=== PATIENT | female | born 1950 | race Two or more races ===

== ENCOUNTER → 2017-02-13 | Day surgery (SDC) | payer OTHER ==
[~2017-02-13] MED LIST: LIDOCAINE/PRILOCAINE 1 EACH CRTUBE TP ONE; MIDAZOLAM 2 MG/2 ML VIAL IVP ONE; NS 500 ML IV ONE; PROPOFOL 200 MG/20 ML VIAL IVP ONE; fentaNYL 100 MCG/2 ML INJ IVP ONE
--- NOTE | 2017-02-13 14:03 | CPEKG ---
Heart Rate: 75 RR Interval: 800 QRSD Interval: 84 QT Interval: 372 QTC Interval: 416 QRS [place]: 7 T Wave [place]: 19 EKG Severity - ABNORMAL ECG - EKG Impression: ATRIAL FIBRILLATION, V-RATE 64-86 Electronically Signed By: Gigi Anderson 13-Feb-2017 14:24:14
[2017-02-13 14:36] LABS: INR 1.24 (0.83-1.16); PROTIME(PATIENT) 15.6 SEC (12.0-15.0)
[2017-02-13 14:37] LABS: APTT 29.9 SEC (23.0-38.0)
[2017-02-13 14:38] LABS: ANION GAP 11 mEq/L (8-16); CALCIUM 10.1 mg/dL (8.5-10.4); CARBON DIOXIDE 27 mEq/l (22-31); CHLORIDE 102 mEq/L (97-110); CREATININE 1.3 mg/dL (0.6-1.0); GLOMERULAR FILTRATION RATE 41; GLUCOSE 96 mg/dL (70-100); MAGNESIUM 2.3 mg/dL (1.6-2.3); POTASSIUM 4.4 mEq/L (3.5-5.2); SODIUM 140 mEq/L (134-144)
--- NOTE | 2017-02-13 17:54 | PDTEE1 ---
WILLIAM Cardioversion Procedure Procedure: Electrical Cardioversion Indications: Atrial Fibrillation Consent: Signed and in Chart Anticoagulation: Eliquis Procedural Details: Pads were placed in anterior-posterior position. WILLIAM probe was advanced and standard images obtained. There is no evidence of left atrial or left atrial appendage thrombus. Synchronized cardioversion attempt #1: 200J Synchronized cardioversion attempt #2: 300J Results: Other (Following 2nd shock, sinus rhythm was restored for only a few beats before reverting to atrial fibrillation.) Conclusions: other (Unsuccessful atttempt at cardioversion. Will start flecainide 50 mg BID and plan for repeat cardioversion at a later date.)
== END | disposition home or self-care (01) ==
LOC: FCATH 13:37
PROVIDERS: ATTEND Internal Medicine Interventional Cardiology
PROC: 5A2204Z Restoration of Cardiac Rhythm, Single (ICD-10-PCS; principal; 2017-02-13)
DX: I25.10 Atherosclerotic heart disease of native coronary artery without angina pectoris (principal); E78.00 Pure hypercholesterolemia, unspecified; I48.1 Persistent atrial fibrillation; R42 Dizziness and giddiness; E78.5 Hyperlipidemia, unspecified; E03.9 Hypothyroidism, unspecified; G35 Multiple sclerosis; Z87.891 Personal history of nicotine dependence
CPT/HCPCS: J2704

== ENCOUNTER → 2017-03-01 | Outpatient (CLI) | payer OTHER | LOC: BHLMT 09:00 | PROVIDERS: ATTEND Internal Medicine Cardiovascular Disease | DX: I25.10 Atherosclerotic heart disease of native coronary artery without angina pectoris (principal); E78.00 Pure hypercholesterolemia, unspecified; E03.9 Hypothyroidism, unspecified; I48.1 Persistent atrial fibrillation; I48.92 Unspecified atrial flutter | CPT/HCPCS: 93005-PO ==

== ENCOUNTER 2017-03-09 09:50 | Day surgery (SDC) | payer OTHER ==
[2017-03-09] MEDS ORDERED: fentaNYL 100 MCG/2 ML INJ IVP ONE (09:52)
[2017-03-09] MEDS ORDERED: NS 500 ML IV ONE (09:52)
[2017-03-09] MEDS ORDERED: PROPOFOL 200 MG/20 ML VIAL IVP ONE (09:52)
[2017-03-09] MEDS ORDERED: MIDAZOLAM 2 MG/2 ML VIAL IVP ONE (09:52)
--- NOTE | 2017-03-09 10:22 | CPEKG ---
Heart Rate: 94 RR Interval: 638 QRSD Interval: 100 QT Interval: 368 QTC Interval: 461 QRS [place]: -67 T Wave [place]: -54 EKG Severity - ABNORMAL ECG - EKG Impression: ATRIAL FIBRILLATION/FLUTTER EKG Impression: PROBABLE INFERIOR INFARCT, POSSIBLY RECENT EKG Impression: BORDERLINE R WAVE PROGRESSION, ANTERIOR LEADS EKG Impression: LATERAL LEADS ARE ALSO INVOLVED Electronically Signed By: Qasim Kerr 09-Mar-2017 11:51:02
[2017-03-09 10:46] LABS: INR 1.36 (0.83-1.16); PROTIME(PATIENT) 16.8 SEC (12.0-15.0)
[2017-03-09 10:47] LABS: APTT 30.5 SEC (23.0-38.0)
[2017-03-09 10:58] LABS: ANION GAP 12 mEq/L (8-16); CALCIUM 10.5 mg/dL (8.5-10.4); CARBON DIOXIDE 23 mEq/l (22-31); CHLORIDE 100 mEq/L (97-110); CREATININE 1.4 mg/dL (0.6-1.0); GLOMERULAR FILTRATION RATE 38; GLUCOSE 87 mg/dL (70-100); MAGNESIUM 2.4 mg/dL (1.6-2.3); POTASSIUM 4.3 mEq/L (3.5-5.2); SODIUM 135 mEq/L (134-144)
[2017-03-09] MEDS ORDERED: NALOXONE HCL 0.4 MG/ML INJ IVP PRN (11:08)
--- NOTE | 2017-03-09 11:10 | POSTANESTH ---
Post Anesthetic Evaluation Cardiovascular Status: Normal, Stable Respiratory Status: Normal, Stable Level of Consciousness/Mental Status: Can Participate in Eval, Moderately Sleepy Pain Control: Adequate, Prn Tx Ordered Nausea/Vomiting Control: Adequate, Prn Tx Ordered Complications Possibly Related to Anesthesia: None Noted
--- NOTE | 2017-03-09 11:10 | PDANEPAE ---
ANE Past Medical History - Cardiovascular History Hx Hypertension: Yes Hx Arrhythmias: Yes Hx Coronary Artery / Peripheral Vascular Disease: Yes Hx Palpitations: Yes - Pulmonary History Hx Sleep Apnea: No - Endocrine History Hypothyroid: Yes ANE Patient History - Allergies Allergies/Adverse Reactions: acetaminophen [From Vicodin] Allergy (Verified 02/13/17 13:46) aspirin Allergy (Verified 02/13/17 13:46) hydrocodone [From Vicodin] Allergy (Verified 02/13/17 13:46) - Home Medications Home Medications: Acetaminophen Extra Strength 1,000 mg PO Q6 PRN 03/09/17 [Last Taken Unknown] Calcium 1,500 mg PO DAILY 03/09/17 [Last Taken Unknown] Eliquis 5 mg PO BID 03/09/17 [Last Taken Unknown] Flecainide Acetate 50 mg PO Q12 03/09/17 [Last Taken Unknown] Gabapentin 100 mg PO DAILY 03/09/17 [Last Taken Unknown] Ibuprofen 200 mg PO Q6 PRN 03/09/17 [Last Taken Unknown] Levothyroxine 112 mg PO DAILY 03/09/17 [Last Taken Unknown] Metoprolol Succinate 12.5 mg PO DAILY 03/09/17 [Last Taken Unknown] Simvastatin 40 mg PO DAILY 03/09/17 [Last Taken Unknown] Tecfidera 240 mg PO BID 03/09/17 [Last Taken Unknown] Vitamin D3 2000 units tab (OTC) 2,000 units PO DAILY 03/09/17 [Last Taken Unknown] - Smoking Hx Smoking Status: Former smoker ANE Labs/Vital Signs - Labs Result Diagrams: 03/09/17 10:30 - Vital Signs Height: 168.8 cm Weight: 69.8 kg ANE Physical Exam - Airway Neck exam: decreased ROM Mallampati Score: Class 1 Mouth exam: normal dental/mouth exam - Pulmonary Pulmonary: no respiratory distress, no rales or rhonchi, clear to auscultation - Cardiovascular Cardiovascular: regular rate and rhythym, irregularly irregular - ASA Status ASA Status: III ANE Anesthesia Plan Anesthesia Plan: GA with mask
--- NOTE | 2017-03-09 11:39 | PDTEE1 ---
WILLIAM Cardioversion Procedure Procedure: Electrical Cardioversion Indications: Other (Atrial Flutter) Consent: Signed and in Chart Anticoagulation: Eliquis Procedural Details: Pads were placed in anterior-posterior position. No WILLIAM performed since the patient has been on consistent anticoagulation. Synchronized cardioversion attempt #1: 200J Results: Normal sinus rhythm Conclusions: Successful Cardioversion
[2017-03-09] MEDS ORDERED: ACETAMINOPHEN 500 MG TAB PO ONE (11:45)
--- NOTE | 2017-03-09 15:55 | CPEKG ---
Heart Rate: 66 RR Interval: 909 P-R Interval: 236 QRSD Interval: 90 QT Interval: 392 QTC Interval: 411 P [place]: 58 QRS [place]: -32 T Wave [place]: 19 EKG Severity - ABNORMAL ECG - EKG Impression: SINUS RHYTHM EKG Impression: FIRST DEGREE AV BLOCK EKG Impression: LEFT AXIS DEVIATION EKG Impression: SINUS RHYTHM HAS REPLACED ATRIAL FIB/FLUTTER Electronically Signed By: Qasim Kerr 09-Mar-2017 16:57:39
== END 2017-03-09 12:17 | disposition home or self-care (01) ==
LOC: FCATH 09:50
PROVIDERS: ATTEND Internal Medicine Interventional Cardiology
PROC: 5A2204Z Restoration of Cardiac Rhythm, Single (ICD-10-PCS; principal; 2017-03-09)
DX: I48.2 Chronic atrial fibrillation (principal); I25.10 Atherosclerotic heart disease of native coronary artery without angina pectoris; E78.00 Pure hypercholesterolemia, unspecified; E03.9 Hypothyroidism, unspecified; G35 Multiple sclerosis; N18.9 Chronic kidney disease, unspecified; Z79.01 Long term (current) use of anticoagulants
CPT/HCPCS: J2704

== ENCOUNTER → 2017-03-16 | Outpatient (CLI) | payer OTHER | LOC: BHLMT 10:30 | PROVIDERS: ATTEND Internal Medicine Cardiovascular Disease | DX: I48.92 Unspecified atrial flutter (principal); I25.10 Atherosclerotic heart disease of native coronary artery without angina pectoris; I48.0 Paroxysmal atrial fibrillation; E78.00 Pure hypercholesterolemia, unspecified; R00.1 Bradycardia, unspecified | CPT/HCPCS: 93005-PO ==

== ENCOUNTER → 2017-04-06 | Outpatient (CLI) | payer OTHER | LOC: BHFA 15:00 | PROVIDERS: ATTEND Internal Medicine Cardiovascular Disease | DX: I48.92 Unspecified atrial flutter (principal) ==

== ENCOUNTER 2017-04-26 07:22 | Observation (INO) | payer OTHER ==
[2017-04-26] MEDS ORDERED: ISOPROTERENOL HCL/D5W 0.2 MG/50 ML BAG IV ONE (07:29)
[2017-04-26] MEDS ORDERED: HEPARIN 10,000 UNIT/10 ML MDV ONE (07:29)
[2017-04-26] MEDS ORDERED: BUPIVACAINE 0.5% 30 ML SDV ONE (07:29)
[2017-04-26] MEDS ORDERED: LIDOCAINE 1% 300 MG/30 ML SDV ONE (07:29)
[2017-04-26] MEDS ORDERED: NS 1,000 ML IV ONE (07:33)
[2017-04-26] MEDS ORDERED: MIDAZOLAM 2 MG/2 ML VIAL IVP ONE (07:33)
--- NOTE | 2017-04-26 07:46 | CPEKG ---
Heart Rate: 51 RR Interval: 1176 P-R Interval: 228 QRSD Interval: 96 QT Interval: 444 QTC Interval: 409 P [place]: 37 QRS [place]: -41 T Wave [place]: 31 EKG Severity - ABNORMAL ECG - EKG Impression: SINUS RHYTHM EKG Impression: FIRST DEGREE AV BLOCK EKG Impression: LEFT AXIS DEVIATION Electronically Signed By: Neal Whittington 26-Apr-2017 14:18:26
[2017-04-26 08:18] LABS: % IMMATURE GRANULYOCYTES 0.2 % (0.0-1.1); ABSOLUTE IMMATURE GRANULOCYTES 0.01 10^3/uL (0.00-0.10); ADD DIFF? NO; ADD MORPH? NO; ADD SCAN? NO; ATYPICAL LYMPHOCYTE FLAG 10 (0-99); FRAGMENT RBC FLAG 0 (0-99); HEMATOCRIT 36.3 % (38.0-47.0); HEMOGLOBIN 12.3 g/dL (12.6-16.3); LEFT SHIFT FLG 0 (0-99); LIPEMIA HEMOLYSIS FLAG 90 (0-99); MEAN CELL HEMOGLOBIN CONCENTR. 33.9 g/dL (32.4-36.7); MEAN CELL VOLUME 94.5 fL (81.5-99.8); MEAN PLATELET VOLUME 10.1 fL (8.7-11.7); PLATELET CLUMPS FLAG 0 (0-99); PLATELET COUNT 277 10^3/uL (150-400); RED BLOOD CELL COUNT 3.84 10^6/uL (4.18-5.33); RED CELL DISTRIBUTION WIDTH 12.5 % (11.5-15.2)
[2017-04-26 08:37] LABS: ANION GAP 14 mEq/L (8-16); CALCIUM 10.1 mg/dL (8.5-10.4); CARBON DIOXIDE 22 mEq/l (22-31); CHLORIDE 101 mEq/L (97-110); CREATININE 1.3 mg/dL (0.6-1.0); GLOMERULAR FILTRATION RATE 41; GLUCOSE 79 mg/dL (70-100); MAGNESIUM 2.3 mg/dL (1.6-2.3); POTASSIUM 4.2 mEq/L (3.5-5.2); SODIUM 137 mEq/L (134-144)
[2017-04-26 08:39] LABS: INR 1.05 (0.83-1.16); PROTIME(PATIENT) 13.6 SEC (12.0-15.0)
[2017-04-26 08:40] LABS: APTT 27.3 SEC (23.0-38.0)
--- NOTE | 2017-04-26 08:40 | PDANEPAE ---
ANE History of Present Illness 67 year old female with A flutter and A fibrillation. ANE Past Medical History Past Medical History: No fever/URI x2 weeks. Had a bump on her head after recent cardioversion. No clear understanding of how this happened. Concerned that this not happen again during anesthetic. - Cardiovascular History Hx Hypertension: Yes Hx Arrhythmias: Yes Hx Coronary Artery / Peripheral Vascular Disease: Yes Hx Palpitations: Yes Cardiovascular History Comment: Hypercholesterolemia - Pulmonary History Hx COPD: No Hx Asthma/Reactive Airway Disease: No Hx Recent Upper Respiratory Infection: No Hx Sleep Apnea: No - Neurologic History Hx Cerebrovascular Accident: No Hx Seizures: No Hx Dementia: No - Endocrine History Hypothyroid: Yes - Renal History Hx Renal Disorders: No - Liver History Hx Hepatic Disorders: No - Neurological & Psychiatric Hx Hx Neurological and Psychiatric Disorders: No - GI History Hx Gastrointestinal Disorders: No ANE Review of Systems - Exercise capacity METS (RN): 4 METS - Systems Constitutional: Reports: no symptoms Respiratory: Reports: no symptoms ANE Patient History - Allergies Allergies/Adverse Reactions: aspirin Allergy (Verified 02/13/17 13:46) hydrocodone [From Vicodin] Allergy (Verified 02/13/17 13:46) - Home Medications Home medications: home medication list seen and reviewed Home Medications: Acetaminophen [Tylenol ES 500 mg (*)] 1,000 mg PO DAILY PRN 03/09/17 [Last Taken 03/09/17 11:30] Apixaban [Eliquis] 5 mg PO BID 03/09/17 [Last Taken 04/23/17 21:00] Cholecalciferol Vit D3 [Vitamin D3 2000 units tab (OTC)] 2,000 units PO DAILY [Last Taken 03/09/17 07:00] Dimethyl Fumarate [Tecfidera] 240 mg PO BID 03/09/17 [Last Taken 04/25/17] Flecainide Acetate 50 mg PO Q12 03/09/17 [Last Taken 03/09/17 07:00] Gabapentin [Neurontin 100 MG (*)] 100 mg PO HS 03/09/17 [Last Taken 04/25/17] Herbals/Supplements -Info Only 1 ea PO DAILY 03/09/17 [Last Taken 03/09/17 07:00 ] Levothyroxine [Synthroid 112 mcg (*)] 112 mcg PO DAILY06 03/09/17 [Last Taken ] Simvastatin [Zocor] 40 mg PO DAILY 03/09/17 [Last Taken 04/25/17] Ibuprofen [Motrin (*)] 200 mg PO DAILY PRN 04/26/17 [Last Taken Unknown] - Anes Hx Anes Hx: slow to awaken from anesthesia Hx Anesthesia Complications (with details): After most recent CV, pt was told she awoke slowly. - Smoking Hx Smoking Status: Former smoker Marijuana use: No - Family Anes Hx Family Anes Hx: neg - N/A ANE Labs/Vital Signs - Labs Result Diagrams: 04/26/17 07:50 04/26/17 07:50 - Vital Signs Vital Signs: reviewed preoperatively; see RN documention for details ANE Physical Exam - Airway Neck exam: FROM Mallampati Score: Class 2 Mouth exam: normal dental/mouth exam - Pulmonary Pulmonary: clear to auscultation - Cardiovascular Cardiovascular: regular rate and rhythym - ASA Status ASA Status: II ANE Anesthesia Plan Anesthesia Plan: general endotracheal anesthesia
[2017-04-26] MEDS ORDERED: fentaNYL 100 MCG/2 ML INJ ONE (08:47)
[2017-04-26] MEDS ORDERED: ROCURONIUM 100 MG/10 ML VIAL ONE (08:47)
[2017-04-26] MEDS ORDERED: DEXAMETHASONE 4 MG/ML VIAL ONE (08:47)
[2017-04-26] MEDS ORDERED: PROPOFOL/EMULSION 500 MG/50 ML BOTTLE IV ONE ×2 (08:47→10:25)
[2017-04-26] MEDS ORDERED: PHENYLEPHRINE HCL 100 MCG/ML SYR ONE ×2 (09:25→11:01)
[2017-04-26] MEDS ORDERED: ONDANSETRON 4 MG/2 ML VIAL ONE (10:38)
[2017-04-26] MEDS ORDERED: NEOSTIGMINE METHYLSULFATE 5 MG/5 ML SYR ONE (11:04)
[2017-04-26] MEDS ORDERED: GLYCOPYRROLATE 0.2 MG/1 ML VIAL ONE (11:04)
[2017-04-26] MEDS ORDERED: ONDANSETRON 4 MG/2 ML VIAL IVP PRN (11:18)
[2017-04-26] MEDS ORDERED: ACETAMINOPHEN 500 MG TAB PO PRN (11:20)
[2017-04-26] MEDS ORDERED: IBUPROFEN 200 MG TAB PO PRN (11:20)
[2017-04-26] MEDS ORDERED: ATROPINE SULFATE 1 MG/10 ML SYR ONE (11:37)
--- NOTE | 2017-04-26 12:10 | CPEKG ---
Heart Rate: 53 RR Interval: 1132 P-R Interval: 236 QRSD Interval: 94 QT Interval: 460 QTC Interval: 432 P [place]: 64 QRS [place]: 1 T Wave [place]: 41 EKG Severity - ABNORMAL ECG - EKG Impression: SINUS RHYTHM EKG Impression: FIRST DEGREE AV BLOCK Electronically Signed By: Neal Whittington 26-Apr-2017 14:18:17
[2017-04-26 12:29] LABS: ANION GAP 13 mEq/L (8-16); CALCIUM 8.9 mg/dL (8.5-10.4); CARBON DIOXIDE 22 mEq/l (22-31); CHLORIDE 103 mEq/L (97-110); CREATININE 1.2 mg/dL (0.6-1.0); GLOMERULAR FILTRATION RATE 45; GLUCOSE 94 mg/dL (70-100); MAGNESIUM 2.1 mg/dL (1.6-2.3); POTASSIUM 3.8 mEq/L (3.5-5.2); SODIUM 138 mEq/L (134-144)
[2017-04-26] MEDS ORDERED: DIMETHYL FUMARATE 240 MG PO SCH (21:00)
[2017-04-26] MEDS ORDERED: FLECAINIDE ACETATE 50 MG PO SCH (21:00)
[2017-04-26] MEDS ORDERED: GABAPENTIN 100 MG CAP PO SCH (21:00)
[2017-04-26] MEDS: FLECAINIDE ACETATE 100 MG TAB PO SCH (21:11)
[2017-04-26] MEDS: Dimethyl Fumarate [Tecfidera] 240 MG PO SCH (21:12)
[2017-04-26] MEDS: APIXABAN 5 MG TAB PO SCH (21:15)
[2017-04-26] MEDS: ACETAMINOPHEN 325 MG TAB PO PRN (22:02)
[2017-04-27] MEDS: ACETAMINOPHEN 325 MG TAB PO PRN (04:20)
[2017-04-27 05:06] LABS: % IMMATURE GRANULYOCYTES 0.4 % (0.0-1.1); ABSOLUTE IMMATURE GRANULOCYTES 0.04 10^3/uL (0.00-0.10); ADD DIFF? NO; ADD MORPH? NO; ADD SCAN? NO; ATYPICAL LYMPHOCYTE FLAG 0 (0-99); FRAGMENT RBC FLAG 0 (0-99); HEMATOCRIT 33.1 % (38.0-47.0); HEMOGLOBIN 11.2 g/dL (12.6-16.3); LEFT SHIFT FLG 0 (0-99); LIPEMIA HEMOLYSIS FLAG 90 (0-99); MEAN CELL HEMOGLOBIN 32.3 pg (27.9-34.1); MEAN CELL HEMOGLOBIN CONCENTR. 33.8 g/dL (32.4-36.7); MEAN CELL VOLUME 95.4 fL (81.5-99.8); MEAN PLATELET VOLUME 10.4 fL (8.7-11.7); PLATELET CLUMPS FLAG 0 (0-99); PLATELET COUNT 251 10^3/uL (150-400); RED BLOOD CELL COUNT 3.47 10^6/uL (4.18-5.33); RED CELL DISTRIBUTION WIDTH 12.5 % (11.5-15.2)
[2017-04-27 05:19] LABS: ANION GAP 8 mEq/L (8-16); CALCIUM 9.6 mg/dL (8.5-10.4); CARBON DIOXIDE 25 mEq/l (22-31); CHLORIDE 103 mEq/L (97-110); CREATININE 1.2 mg/dL (0.6-1.0); GLOMERULAR FILTRATION RATE 45; GLUCOSE 116 mg/dL (70-100); POTASSIUM 4.5 mEq/L (3.5-5.2); SODIUM 136 mEq/L (134-144)
[2017-04-27 05:28] LABS: CREATINE KINASE-MB FRACTION 2.58 ng/mL (0.00-3.19); TROPONIN I 0.363 ng/mL (0.000-0.034)
[2017-04-27 05:44] LABS: INR 1.15 (0.83-1.16); PROTIME(PATIENT) 14.6 SEC (12.0-15.0)
[2017-04-27] MEDS ORDERED: LEVOTHYROXINE 112 MCG TAB PO SCH (06:00)
[2017-04-27 07:14] VITALS: BP 116/62; PULSE 47; RESP 12; TEMP 98.7; O2SAT 96
[2017-04-27] MEDS: FLECAINIDE ACETATE 100 MG TAB PO SCH (08:05)
[2017-04-27] MEDS: APIXABAN 5 MG TAB PO SCH (08:05)
[2017-04-27] MEDS: Dimethyl Fumarate [Tecfidera] 240 MG PO SCH (08:30)
[2017-04-27] MEDS ORDERED: NON-FORMULARY NEW DRUG (Simvastatin [Zocor] 40 MG) PO SCH (09:00)
[2017-04-27] MEDS ORDERED: ATORVASTATIN CALCIUM 20 MG TAB PO SCH (09:00)
[2017-04-27] MEDS ORDERED: CHOLECALCIFEROL VIT D3 2,000 UNITS TAB/CAP PO SCH (09:00)
[2017-04-27] MEDS ORDERED: Herbals/Supplements -Info Only PO SCH (09:00)
--- NOTE | 2017-04-27 09:25 | CPEKG ---
Heart Rate: 60 RR Interval: 1000 P-R Interval: 248 QRSD Interval: 98 QT Interval: 424 QTC Interval: 424 P [place]: 84 QRS [place]: 54 T Wave [place]: 30 EKG Severity - ABNORMAL ECG - EKG Impression: SINUS RHYTHM EKG Impression: FIRST DEGREE AV BLOCK EKG Impression: UNCHANGED IN COMPARISON TO PRIOR ECG Electronically Signed By: Qasim Kerr 27-Apr-2017 09:41:18
--- NOTE | 2017-04-27 13:16 | ECHO ---
[id number] + + [address] : : [place] [address] : : [phone] + + Adult Echocardiographic Report + ---+ :Name: KANDIS DUNEAS Estephania Date: 04/27/2017 08:51 AM : : Hospital Admission Number: [id number] Location: 217: :: 1950 Gender: Female Height: 67 in : :Age: 67 yrs Race: [facility] Weight: 156 lb : :Reason For Study: F/U post EP study : : BSA: 1.8 meters2 : + ---+ MMode/2D Measurements \T\ Calculations IVSd: 0.92 cm LVIDd: 4.6 cm FS: 38.4 % Ao root diam: LVPWd: 0.99 cm LVIDs: 2.8 cm EDV(Teich): 3.2 cm 95.9 ml LA dimension: ESV(Teich): 4.4 cm 29.9 ml EF(Teich): 68.8 % LVLd ap4: 6.8 cm SV(MOD-sp4): EDV(MOD-sp4): 45.0 ml 61.0 ml LVLs ap4: 5.0 cm ESV(MOD-sp4): 16.0 ml EF(MOD-sp4): 73.8 % Normal Measurement Values: + + :LVIDd (3.5-5.7cm) IVSd (0.6-1.1cm) LVPWd (0.6-1.1cm) Aortic Root (2.0-3.7cm)Left Atrium (1.5-4.0cm): :LV Vol(d) (76-115ml) LV Vol(s) (29-48ml) Ejec Fraction (50-65%)PV Clarke (0.6- 1.2m/s) TV [place] (0.4-1.0m/s) : :MV E [place] (0.8-1.0m/s)MV A [place] (0.3-1.0m/s)LVOT Clarke (0.7-1.2m/s) Asc Ao Clarke ( 0.9-1.8m/s) : + + Doppler Measurements \T\ Calculations MV E max clarke: 84.9 cm/sec Ao mean P.5 mmHg TR max clarke: 268.8 cm/sec MV A max clarke: 73.5 cm/sec Ao V2 mean: 110.8 cm/sec TR max P.9 mmHg MV E/A: 1.2 Ao V2 VTI: 37.4 cm RAP systole: 5.0 mmHg RVSP(TR): 33.9 mmHg Left Ventricle The left ventricle is normal in size. There is normal left ventricular wall thickness. Left ventricular systolic function is normal. Ejection Fraction = 60-65%. No regional wall motion abnormalities noted. Right Ventricle The right ventricle is normal in size and function. Atria The left atrium is mildly dilated. The right atrium is mildly dilated. The interatrial septum is intact with no evidence for an atrial septal defect. Mitral Valve The mitral valve is normal in structure and function. There is no evidence of mitral valve prolapse. There is no mitral valve stenosis. There is mild mitral regurgitation. Tricuspid Valve Normal tricuspid valve. There is mild to moderate tricuspid regurgitation. Right ventricular systolic pressure is normal. Aortic Valve The aortic valve is trileaflet. The aortic valve opens well. There is no aortic stenosis. There is no aortic insufficiency. Pulmonic Valve The pulmonic valve is normal in structure and function. There is no pulmonic valvular regurgitation. Great Vessels The aortic root is normal size. Pericardium/Pleural There is no pericardial effusion. Conclusion A complete two-dimensional transthoracic echocardiogram was performed (2D, M-mode, Doppler and color flow Doppler). Left ventricular systolic function is normal. Ejection Fraction = 60-65%. The left atrium is mildly dilated. The right atrium is mildly dilated. There is mild mitral regurgitation. There is mild to moderate tricuspid regurgitation. Right ventricular systolic pressure is normal. There is no pericardial effusion. Final Reading Physician: Cris Watkins signed on 04/27/2017 01:14 PM Ordering Physician: Nickolas Clark Performed By: Jazzy Carlos RDCS
--- NOTE | 2017-04-27 17:36 | EPPROC ---
Electrophysiology Procedure Note: ELECTROPHYSIOLOGIC STUDY AND CATHETER MEDIATED ABLATION FOR SUBEUSTACHIAN ISTHMUS DEPENDENT COUNTERCLOCKWISE ATRIAL FLUTTER: INDICATION: Recurrent atrial flutter PROCEDURES PERFORMED: 68288-03 EP evaluation with RA/RV/LA pace/record, with arrhythmia induction 82704-33 EP evaluation with RA/RV pace record, insert/reposition catheter, with arrhythmia induction 40373 SVT ablation 84923 3D mapping Fluoroscopy Catheters & Anesthesia: The patient arrived in the Electrophysiology Laboratory in the fasting state. The right clavicular region, right groin, and left groin area were prepped and draped in the usual sterile manner. Anesthesiologist administered general anesthesia. Appropriate non-invasive blood pressure, pulse oximetry and end- tidal CO2 monitoring was established. All catheters were placed percutaneously using the modified Seldinger technique , and advanced into position under fluoroscopic guidance. One #6 [place] deflectable decapolar catheter was advanced into the CS and another one into the ALRA position via the RFV. Heparin was administered Programmed stimulation was performed from the right atrium, coronary sinus ( left atrium) and right ventricle. On arrival to the Electrophysiology Laboratory the patient was in SR. However, clinical flutter was noted and it was typical right atrial flutter. Hence pacing was started from the CS. A high-resolution 3D (3 dimensional) Carto electroanatomical map of the sub-Eustachian isthmus and right atrium was obtained during pacing of the posterolateral coronary sinus. A #8 [place] deflectable quadrapolar electrode catheter (2mm-5mm-2mm spacing) with 3.5 mm irrigated tip electrode and location sensor for the [employer] mapping system was inserted and advanced to the right atrium. Radiofrequency applications were applied between the tricuspid annulus at 0630 oclock as seen in the SPANISH view and the inferior vena cava. This achieved conduction block across the isthmus Following ablation of the atrial flutter, programmed atrial stimulation was performed in the baseline state and during infusion of isoproterenol 2 mcg/min. No atrial arrhythmias were inducible post ablation. Post ablation, a high-resolution electroanatomical map of the sub-Eustachian isthmus was obtained during pacing of the posterolateral coronary sinus. This confirmed conduction block across the sub-Eustachian isthmus. Bidirectional block was also confirmed by pacing. The catheters were removed. The patient was transferred to the cardiovascular holding area in stable condition. Vascular access sheaths were removed in the holding area. There were no apparent complications. Results: Typical isthmus dependent counterclockwise right atrial flutter Successful ablation of the isthmus Bidirectional block post ablation No induction of Aflutter post ablation CONCLUSIONS: * Cavotricuspid isthmus dependent counterclockwise atrial flutter. * Successful catheter mediated ablation of cavotricuspid isthmus achieving bi- directional conduction block across cavotricuspid isthmus. * No atrial arrhythmias inducible post ablation. * No apparent complications. Patient Problems: Problems Problem Status Onset Atrial flutter Acute
--- NOTE | 2017-04-27 17:55 | GDS ---
[f rep st] DISCHARGE SUMMARY DISCHARGE DIAGNOSES: 1. Paroxysmal atrial flutter. 2. Paroxysmal atrial fibrillation. 3. History of hyperlipidemia. 4. History of mild coronary artery disease. 5. Hypothyroidism. 6. Multiple sclerosis. PROCEDURES: 1. 04/26/2017, EP study with atrial flutter ablation. 2. 04/27/2017, echocardiogram. BRIEF HISTORY: Please see dictated H and P for complete details. In brief, the patient is a 67-yea r-old female with history of atrial flutter and fibrillation, non-flow limiting CAD, multiple sclero sis, who has been having bouts of atrial fibrillation despite 2 cardioversions. Her atrial fibrilla tion has been controlled on flecainide. She had a hybrid procedure where she underwent atrial flutt er ablation, and she will continue on flecainide to control her atrial fibrillation. On day of disc harge, the patient denies any groin pain, or any significant shortness of breath, or chest pain. PHYSICAL EXAM: VITAL SIGNS: On day of discharge, blood pressure 116/62, heart rate 47, respiration s 12, O2 saturation 96%. GENERAL: She is a very pleasant female in no apparent distress. EYES: P ERRL. HEART: Regular rate and rhythm. LUNGS: Clear. GROID: Right groin site without ecchymosis or bruit. EXTREMITIES: She has 2+ PT and DP pulses bilaterally. LABORATORY DATA: CBC with WBC 9.83, hemoglobin 11.2, hematocrit 33.1, platelet count of 251. BMP w ith sodium 136, potassium 4.5, chloride 103, CO2 25, BUN 19, creatinine 1.2, glucose of 116, troponi n of 0.363. RESULTS PENDING: None. DIET: Per previous. ACTIVITY: Groin precautions reviewed. FOLLOWUP INSTRUCTIONS: 1. Groin precautions. 2. Follow up with Dr. Clark as scheduled for 1 month's time. /[id number]/MODL
== END 2017-04-27 11:40 | disposition home or self-care (01) ==
LOC: FSGY 07:22 → F2W 11:18
PROVIDERS: ADMIT Internal Medicine Cardiovascular Disease; ATTEND Internal Medicine Cardiovascular Disease
PROC: 02573ZZ Destruction of Left Atrium, Percutaneous Approach (ICD-10-PCS; principal; 2017-04-26)
PROC: 4A023FZ Measurement of Cardiac Rhythm, Percutaneous Approach (ICD-10-PCS; principal; 2017-04-26)
PROC: 5A1213Z Performance of Cardiac Pacing, Intermittent (ICD-10-PCS; principal; 2017-04-26)
PROC: B245ZZ4 Ultrasonography of Left Heart, Transesophageal (ICD-10-PCS; principal; 2017-04-26)
PROC: 02K83ZZ Map Conduction Mechanism, Percutaneous Approach (ICD-10-PCS; principal; 2017-04-26)
PROC: 025L3ZZ Destruction of Left Ventricle, Percutaneous Approach (ICD-10-PCS; principal; 2017-04-26)
PROC: 02563ZZ Destruction of Right Atrium, Percutaneous Approach (ICD-10-PCS; principal; 2017-04-26)
DX: I48.92 Unspecified atrial flutter (principal); I48.0 Paroxysmal atrial fibrillation; E78.5 Hyperlipidemia, unspecified; I25.10 Atherosclerotic heart disease of native coronary artery without angina pectoris; E03.9 Hypothyroidism, unspecified; G35 Multiple sclerosis
CPT/HCPCS: 93005; 93306; 93613; 93621; 93623; 93653; C1730; C1732; J1100; J1644; J2370; J2405; J2704; J2710; J3010; J0461

== ENCOUNTER 2017-05-07 18:48 | Emergency (ER) | payer OTHER ==
[2017-05-07 19:04] VITALS: RESP 16; TEMP 98.2
--- NOTE | 2017-05-07 20:44 | EDPHY ---
H & P Time Seen by Provider: 05/07/17 20:18 HPI/ROS: CHIEF COMPLAINT: Right thigh ecchymosis HISTORY OF PRESENT ILLNESS: The patient is a 67-year-old female s/p cardiac ablation via femoral artery who presents with ecchymosis to the right inner aspect of her thigh. No associated pain or swelling. A few days after the procedure, she had pain in the right groin and had an ultrasound that was reportedly normal. The pain has resolved. The patient is anticoagulated on Eliquis. She called her Window Machine Operator, Dr. Camejo, who told her to come to ED to rule out DVT. ROS: No numbness, weakness, excessive bleeding, syncopal episode, other injury. Past Medical/Surgical History: Cardiac ablation for Afib Social History: Smoking Status: Former smoker Physical Exam: Alert, pleasant Abd: soft, NT Groin: no tenderness, erythema or swelling Extremities: 6cm diameter of ecchymosis to right inner thigh; no tenderness or swelling. No leg swelling or tenderness. Negative Kota's sign Vascular: 2+ pedal pulses, cap refill normal Neuro: motor/sens intact in lower extremities Constitutional: Initial Vital Signs Temperature (C) 36.8 C 05/07/17 19:00 Heart Rate 67 05/07/17 19:00 Respiratory Rate 16 05/07/17 19:00 Blood Pressure 120/67 05/07/17 19:00 O2 Sat (%) 97 05/07/17 19:00 O2 Delivery Mode Room Air Allergies/Adverse Reactions: aspirin Allergy (Verified 05/07/17 19:04) hydrocodone [From Vicodin] Allergy (Verified 05/07/17 19:04) Home Medications: Medication Instructions Recorded Acetaminophen [Tylenol ES 500 mg 1,000 mg PO DAILY PRN 03/09/17 (*)] Apixaban [Eliquis] 5 mg PO BID 03/09/17 Cholecalciferol Vit D3 [Vitamin D3 2,000 units PO DAILY 03/09/17 2000 units tab (OTC)] Dimethyl Fumarate [Tecfidera] 240 mg PO BID 03/09/17 Gabapentin [Neurontin 100 MG (*)] 100 mg PO HS 03/09/17 Herbals/Supplements -Info Only 1 ea PO DAILY 03/09/17 Levothyroxine [Synthroid 112 mcg 112 mcg PO DAILY06 03/09/17 (*)] Simvastatin [Zocor] 40 mg PO DAILY 03/09/17 Ibuprofen [Motrin (*)] 200 mg PO DAILY PRN 04/26/17 Diltiazem [Cardizem] 120 mg PO HS #90 tab 04/27/17 Flecainide Acetate [Tambocor] 100 mg PO BID #60 tab 04/27/17 Medical Decision Making ED Course/Re-evaluation: This pt presents with a thigh contusion secondary to recent femoral artery cannulization. No evidence of DVT or infection. Departure - Departure Disposition: Home, Routine, Self-Care Clinical Impression: Ecchymosis Condition: Good Instructions: Ecchymosis (ED) Additional Instructions: Followup with your primary care physician as needed. The bruising should improve within a few days. Referrals: Leroy Rose MD [Primary Care Provider] - As per Instructions Report Scribed for: Chari Gomes Report Scribed by: Eri Hernandes Date of Report: 05/07/17 Time of Report: 20:44 Physician Review and Approval Statement: 05/07/17 20:44 Portions of this note were transcribed by a medical laboratory technicians. I personally performed the history, physical exam, and medical decision-making; and confirmed the accuracy of the information in the transcribed note.
[2017-05-07 20:52] VITALS: BP 121/69; PULSE 50; O2SAT 98
== END 2017-05-07 20:52 | disposition home or self-care (01) ==
DX: I97.638 Postprocedural hematoma of a circulatory system organ or structure following other circulatory system procedure (principal); Z87.891 Personal history of nicotine dependence

== ENCOUNTER → 2019-01-15 | Day surgery (SDC) | payer OTHER ==
[~2019-01-15] MED LIST changes: +ATROPINE SULFATE 1 MG/10 ML SYR IVP ONE; -LIDOCAINE/PRILOCAINE 1 EACH CRTUBE TP ONE; -PROPOFOL 200 MG/20 ML VIAL IVP ONE
--- NOTE | 2019-01-15 18:31 | CPEKG ---
Test Reason : OPEN Blood Pressure : / mmHG Vent. Rate : 060 BPM Atrial Rate : 062 BPM P-R Int : 235 ms QRS Dur : 099 ms QT Int : 429 ms P-R-T Axes : 055 -49 036 degrees QTc Int : 429 ms Sinus arrhythmia Prolonged VT interval LAD, consider left anterior fascicular block Confirmed by Fawad Hernandez ([id number]) on 01/15/2019 6:31:01 PM Referred By: Mal Fuentes Confirmed By:Fawad Hernandez
== END | disposition home or self-care (01) ==
LOC: FCATH 12:59
PROVIDERS: ATTEND Internal Medicine Cardiovascular Disease
DX: I48.1 Persistent atrial fibrillation (principal); Z53.09 Procedure and treatment not carried out because of other contraindication; I25.10 Atherosclerotic heart disease of native coronary artery without angina pectoris; E78.00 Pure hypercholesterolemia, unspecified; E03.9 Hypothyroidism, unspecified; R53.83 Other fatigue